=== PATIENT | male | born 2000 | race Caucasian/White ===

== ENCOUNTER 2025-07-06 08:19 | Outpatient (CLI) | payer OTHER ==
[2025-07-06 09:52] LABS: BASO % 0.6 % (0.1-1.2); EOS # 0.21 (0.04-0.54); EOS % 3.3 % (0.7-7.0); LYMPH # 2.81 (1.18-3.74); LYMPH % 43.8 % (19.3-53.1); MEAN PLATELET VOLUME 10.20 fl (9.4-12.4); MONO # 0.54 (0.24-0.82); MONO % 8.4 % (4.7-12.5); NEUT # 2.78 (1.56-6.13); NEUT % 43.3 % (34.0-71.1); RED CELL DISTRIBUTION WIDTH 11.5 % (11.6-14.4)
[2025-07-06 10:21] LABS: ALT/SGPT 39.0 U/L (12-78); AST/SGOT 24.0 U/L (15-37); BILIRUBIN TOTAL 0.71 mg/dL (0.3-1.2); BUN CREA RATIO 17.0 (7.0-25.0); CHOL HDL RATIO 2.7 (0-5.0); CREATININE SERUM 0.72 mg/dL (0.70-1.30); GFR 135.28; GLOBULINA 2.9 G/DL (2.4-3.5); GLUCOSE FASTING 83.0 mg/dL (65-100); HDL 53.0 mg/dl (40-60); LDL 67.0 mg/dl (0-130); OSMOLALITY SERUM 278.0 MOSM/KG (275-295); VLDL 23.0 (0-39)
[2025-07-06 11:13] LABS: URINE BILIRRUBIN SMALL (NEGATIVE); URINE BLOOD NEGATIVE; URINE GLUCOSE NEGATIVE (NEGATIVE); URINE KETONE 15 (NEGATIVE); URINE LEUKOCYTE NEGATIVE; URINE NITRATE NEGATIVE; URINE PROTEIN NEGATIVE (NEGATIVE); URINE UROBILINOGEN 0.2 E.U./dl
[2025-07-06 11:49] LABS: URINE APPEARANCE CLEAR; URINE COLOR YELLOW
[2025-07-06 11:50] LABS: URINE RBC 0-3 /HPF; URINE WBC 0-2 /hpf
[2025-07-06 11:51] LABS: URINE BACTERIA SOME; URINE CRYSTALS NEGATIVE /HPF; URINE EPITHELIAL CELLS 0-4 /HPF; URINE MUCUS MODERATE
== END 2025-07-06 08:48 | disposition home or self-care (01) ==
LOC: LAB 08:19
PROVIDERS: ATTEND Internal Medicine
DX: D64.9 Anemia, unspecified (principal); I10 Essential (primary) hypertension; E78.2 Mixed hyperlipidemia; N39.0 Urinary tract infection, site not specified